=== PATIENT | female | born 1955 | race Two or more races ===

== ENCOUNTER 2016-11-26 23:48 | Emergency (ER) | payer OTHER ==
[2016-11-27 00:40] VITALS: BP 143/88; PULSE 61; TEMP 98; BMI 24.5
[2016-11-27 08:58] LABS: WHITE BLOOD COUNT 3.6 K/mm3 (4.0-10.0)
[2016-11-27 08:59] LABS: BASOPHIL 1.2 % (0-2.0); EOSINOPHIL 3.8 % (0-4.5); MCH 30.5 pg (25.7-33.7); MCHC 34.2 g/dl (32.0-36.0); MEAN CELL VOLUME 89.1 fl (80-96); MEAN PLT VOLUME 8.5 fl (7.5-11.1); NEUTROPHILS 58.8 % (42.8-82.8); PLATELET COUNT 171 K/MM3 (134-434); RDW 13.3 % (11.6-15.6)
[2016-11-27 09:05] LABS: ACTIVATED PTT 29.9 SECONDS (26.9-34.4); INR 1.01 (0.82-1.09); PROTHROMBIN TIME (PATIENT) 11.1 SEC (9.98-11.88)
[2016-11-27 09:09] LABS: CREATININE 0.5 mg/dL (0.55-1.02); GLUCOSE,RANDOM 92 mg/dL (74-106)
[2016-11-27 09:10] LABS: ALBUMIN 4.3 g/dl (3.4-5.0); ANION GAP 7 (8-16); BILIRUBIN,TOTAL 0.5 mg/dL (0.2-1.0); CO2 32 mmol/L (21-32); SGOT/AST 17 U/L (15-37); SGPT/ALT 24 U/L (12-78); TOT PROT 7.3 g/dl (6.4-8.2)
[2016-11-27 09:11] LABS: ALK PHOS 70 U/L (45-117); CPK 72 IU/L (26-192); TROPONIN I < 0.01 ng/ml (0.00-0.05)
--- NOTE | 2016-11-27 11:17 | EKG ---
Test Reason : Blood Pressure : / mmHG Vent. Rate : 056 BPM Atrial Rate : 056 BPM P-R Int : 186 ms QRS Dur : 106 ms QT Int : 444 ms P-R-T Axes : 065 -10 044 degrees QTc Int : 428 ms SINUS BRADYCARDIA INCOMPLETE RIGHT BUNDLE BRANCH BLOCK NONSPECIFIC T WAVE ABNORMALITY ABNORMAL ECG WHEN COMPARED WITH ECG OF 08-JUN-2015 00:41, INCOMPLETE RIGHT BUNDLE BRANCH BLOCK IS NOW PRESENT Confirmed by CODI VERDUZCO, SIMON ([id number]) on 11/27/2016 11:16:46 AM Referred By: Confirmed By:SIMON KINCAID MD
== END 2016-11-27 04:45 | disposition home or self-care (01) ==
LOC: JER 23:48
DX: R07.89 Other chest pain (principal)
CPT/HCPCS: 36415; 80053; 84484; 85025; 85610; 85730; 93005; 93010; 99281-25

== ENCOUNTER 2022-09-14 17:39 | Emergency (ER) | payer OTHER ==
[2022-09-14 17:47] VITALS: BMI 22.1
[2022-09-14] MEDS ORDERED: DEXAMETHASONE SOD PHOSPHATE 10 MG/1 ML VIAL IVPUSH ONE (17:48)
[2022-09-14] MEDS ORDERED: RACEPINEPHRINE IH SOL 2.25% 11.25 MG/0.5 ML VIAL NEB ONE ×2 (17:52→18:10)
[2022-09-14] MEDS ORDERED: DEXAMETHASONE SOD PHOSPHATE 10 MG/1 ML VIAL ONE (17:52)
[2022-09-14] MEDS ORDERED: RACEPINEPHRINE IH SOL 2.25% 11.25 MG/0.5 ML VIAL IH ONE ×2 (18:16→18:17)
[2022-09-14] MEDS ORDERED: BENZOCAINE 20% UNIT DOSE SPRAY MM ONE (18:28)
[2022-09-14] MEDS ORDERED: HURRICAINE SP EXT TUBE 1 EA EACH TP ONE (18:31)
[2022-09-14] MEDS ORDERED: TETRACAINE/BENZOCAINE/BUTAMBEN 20 GM SPR TP ONE (18:43)
[2022-09-14 18:44] LABS: BASO % 0.8 % (0-2.0); EOS % 1.1 % (0-4.5); HEMATOCRIT 39.9 % (32.4-45.2); HEMOGLOBIN 13.9 GM/dL (10.7-15.3); LYMPH % 16.1 % (8-40); MCH 30.6 pg (25.7-33.7); MCHC 34.9 g/dl (32.0-36.0); MEAN CELL VOLUME 87.7 fl (80-96); MEAN PLT VOLUME 8.6 fl (7.5-11.1); MONO % 8.7 % (3.8-10.2); NEUT % 73.3 % (42.8-82.8); PLATELET COUNT 218 10^3/uL (134-434); RBC 4.55 M/mm3 (3.60-5.2); RDW 12.8 % (11.6-15.6); WHITE BLOOD COUNT 9.4 K/mm3 (4.0-10.0)
[2022-09-14 18:56] LABS: POTASSIUM 3.7 mmol/L (3.5-5.1)
[2022-09-14 18:58] LABS: ALBUMIN 4.2 g/dl (3.4-5.0); BLOOD UREA NITROGEN 11.1 mg/dL (7-18)
[2022-09-14] MEDS ORDERED: SODIUM CHLORIDE FOR INHALATION 3 ML VIAL.NEB IH ONE (18:58)
[2022-09-14 19:02] LABS: BILIRUBIN,TOTAL 0.5 mg/dL (0.2-1); CREATININE 0.6 mg/dL (0.55-1.3); TOT PROT 7.8 g/dl (6.4-8.2)
[2022-09-14 22:16] VITALS: BP 112/70; PULSE 90; RESP 19; TEMP 98.3
== END 2022-09-14 22:19 | disposition home or self-care (01) ==
LOC: JER 17:39
PROC: 3E033NZ Introduction of Analgesics, Hypnotics, Sedatives into Peripheral Vein, Percutaneous Approach (ICD-10-PCS; principal; 2022-09-14)
PROC: 3E033GC Introduction of Other Therapeutic Substance into Peripheral Vein, Percutaneous Approach (ICD-10-PCS; 2022-09-14)
PROC: 3E0F7GC Introduction of Other Therapeutic Substance into Respiratory Tract, Via Natural or Artificial Opening (ICD-10-PCS; 2022-09-14)
DX: R06.02 Shortness of breath (principal); Z20.822 Contact with and (suspected) exposure to COVID-19
CPT/HCPCS: 0241U-QW; 36415; 70491-TC; 71045-TC-FY; 80053; 85025; 99291; J1100; Q9967

== ENCOUNTER 2024-06-23 05:28 | Day surgery (SDC) | payer OTHER ==
[2024-06-18 12:10] VITALS: BMI 22.1
[~2024-06-23 05:28] MED LIST: ACETAMINOPHEN 325 MG TABLET (FP) PO PRN
[2024-06-23] MEDS ORDERED: PHENYLEPHRINE 2.5% OPTHALMIC DROP 2ML BOTTLE ONE (07:22)
[2024-06-23] MEDS ORDERED: KETOROLAC TROMETHAMINE 0.5% EYE DROP 1 DROP DROPS ONE (07:22)
[2024-06-23] MEDS ORDERED: OFLOXACIN 0.3% OPHTHALMIC SOLUTION 5 ML BOTTLE ONE (07:22)
[2024-06-23] MEDS ORDERED: TROPICAMIDE 1% OPHTH SOLN 15 ML BOTTLE ONE (07:22)
[2024-06-23] MEDS ORDERED: CYCLOPENTOLATE HCL 1% OPHTH SOLN 2 ML BOTTLE ONE (07:22)
[2024-06-23] MEDS ORDERED: LIDOCAINE HCL/PF 1% SDV 5ML VIAL ONE (07:28)
[2024-06-23] MEDS ORDERED: POVIDONE-IODINE 5% OPHTHALMIC PREP 30 ML SOLUTION ONE (07:29)
[2024-06-23] MEDS ORDERED: TETRACAINE 0.5% OPHTH SOLN 2 ML BOTTLE ONE (07:29)
[2024-06-23] MEDS: CYCLOPENTOLATE HCL 1% OPHTH SOLN 2 ML BOTTLE OP SCH (07:39)
[2024-06-23] MEDS: TROPICAMIDE 1% OPHTH SOLN 15 ML BOTTLE OP SCH (07:40)
[2024-06-23] MEDS: KETOROLAC TROMETHAMINE 0.5% EYE DROP 1 DROP DROPS OP SCH (07:40)
[2024-06-23] MEDS: OFLOXACIN 0.3% OPHTHALMIC SOLUTION 5 ML BOTTLE OP SCH (07:41)
[2024-06-23] MEDS: PHENYLEPHRINE 2.5% OPHTH SOLN 15 ML BOTTLE OP SCH (07:41)
[2024-06-23] MEDS ORDERED: MIDAZOLAM HCL 2 MG/2 ML SINGLE DOSE VIAL ONE (08:47)
[2024-06-23] MEDS: TETRACAINE 0.5% OPHTH SOLN 2 ML BOTTLE OS ONE ×2 (09:16)
[2024-06-23] MEDS: POVIDONE-IODINE 5% OPHTHALMIC PREP 30 ML SOLUTION OS ONE ×2 (09:19)
[2024-06-23] MEDS: BSS (NA/CA/MG/K) BALANCED SALT SOLUTION OPHTH SOLN 15 ML BOTTLE IO ONE ×2 (09:25)
[2024-06-23] MEDS: LIDOCAINE HCL 1% PRESERVATIVE FREE - 30ML VIAL IO ONE ×2 (09:27)
[2024-06-23] MEDS: CHONDROITIN SU A/HYALUR SOD 1 KIT IO ONE ×2 (09:28)
[2024-06-23] MEDS: EPINEPHrine 1:1000 P/F - 1 MG/ML AMP IO ONE ×2 (09:33)
[2024-06-23 10:21] VITALS: RESP 20
[2024-06-23 11:12] VITALS: BP 105/55; PULSE 72; TEMP 98.2
== END 2024-06-23 11:14 | disposition home or self-care (01) ==
LOC: JASU-SURG 05:28
PROVIDERS: ATTEND Ophthalmology
PROC: 08RK3JZ Replacement of Left Lens with Synthetic Substitute, Percutaneous Approach (ICD-10-PCS; principal; 2024-06-23 09:00)
DX: H26.9 Unspecified cataract (principal)
CPT/HCPCS: 66984; V2632